=== PATIENT | female | born 1965 | race Caucasian/White ===

== ENCOUNTER 2017-09-13 11:48 | Day surgery (SDC) | payer OTHER ==
[2017-09-12 11:33] VITALS: BMI 36.3
[2017-09-13] MEDS ORDERED: Midazolam HCl 2 mg/2 ml Vial ONE ×2 (11:58→15:04)
[2017-09-13] MEDS ORDERED: Fentanyl 100 MCG/2 ML VIAL ONE (15:04)
--- NOTE | 2017-09-13 17:31 | MRI ---
MRI OF LUMBAR SPINE PERFORMED WITHOUT CONTRAST ENHANCEMENT 09/13/17 HISTORY: Chronic back pain. History of back surgery for scoliosis. There is a very severe scoliotic change to the spine which is convexed to the right. Pedicle screws a nd connecting rods degrade detail. The cord appears to have normal signal change. Some mild posterior clumping of the nerve roots would suggest some possible arachnoiditis type change. I do not appreciate any areas of central canal stenosis. No definitive signs for foraminal narrowing. There is paraspinal muscle atrophy which is particularly pronounced on the left. IMPRESSION: Severe scoliosis convexed to the right with postoperative changes of the spine. I do not appreciate a ny central canal stenosis. There is suggestion of some clumping to the nerve roots which could indica te an underlying mild arachnoiditis. Clinical correlation suggested. POS: [facility]
== END 2017-09-13 17:05 | disposition home or self-care (01) ==
LOC: SDC/OP 11:48
PROVIDERS: ATTEND Nurse Practitioner Family
DX: M47.816 Spondylosis without myelopathy or radiculopathy, lumbar region (principal); J30.9 Allergic rhinitis, unspecified; F41.9 Anxiety disorder, unspecified; D64.9 Anemia, unspecified; K21.9 Gastro-esophageal reflux disease without esophagitis; Z79.899 Other long term (current) drug therapy; Z88.5 Allergy status to narcotic agent; Z91.048 Other nonmedicinal substance allergy status
CPT/HCPCS: 72148; J2250; J3010

== ENCOUNTER 2018-12-28 09:33 | Outpatient (CLI) | payer OTHER ==
--- NOTE | 2019-01-02 14:32 | MMO ---
Bilateral MAMMO Bilat Screen [facility]. CLINICAL HISTORY: Patient is 53 years old and is seen for screening. The patient has the following family history of breast cancer: maternal aunt, at age 60, malignant (generic). The patient has no personal history of cancer. VIEWS: The views performed were: bilateral craniocaudal with tomosynthesis and bilateral mediolateral oblique with tomosynthesis. FILMS COMPARED: The present examination has been compared to a prior imaging study performed at [facility] on 06/21/2017. MAMMOGRAM FINDINGS: There are scattered fibroglandular densities. There is an asymmetry seen in the CC view only seen in the inner region of the right breast. In the left breast, there are no suspicious masses, calcifications or areas of architectural distortion. IMPRESSION: ASYMMETRY IN THE RIGHT BREAST REQUIRES ADDITIONAL EVALUATION. RECOMMEND DIAGNOSTIC MAMMOGRAM. ULTRASOUND MAY ALSO PROVE USEFUL AT RECALL. THE RESULTS OF THIS EXAM WERE SENT TO THE PATIENT. ACR BI-RADS Category 0 - Incomplete: Need additional imaging evaluation. [facility] will notify the patient of the need for additional imaging services. MAMMOGRAPHY NOTE: 1. A negative mammogram report should not delay a biopsy if a dominant of clinically suspicious mass is present. 2. Approximately 10% to 15% of breast cancers are not detected by mammography. 3. Adenosis and dense breasts may obscure an underlying neoplasm. Reported by: WILLEM JOVEL MD Electonically Signed: [id number]
== END 2018-12-28 09:34 | disposition home or self-care (01) ==
LOC: BICMAMMO 09:33
PROVIDERS: ATTEND Internal Medicine
DX: Z12.31 Encounter for screening mammogram for malignant neoplasm of breast (principal); N64.89 Other specified disorders of breast
CPT/HCPCS: 77063; 77067

== ENCOUNTER 2019-01-08 13:15 | Outpatient (CLI) | payer OTHER ==
--- NOTE | 2019-01-08 13:53 | MMO ---
Right Breast MAMMO Unilat Diag [facility]DI RT+NELDA. CLINICAL HISTORY: Patient is 53 years old and is seen for additional evaluation requested from prior study. The patient has the following family history of breast cancer: maternal aunt, at age 60, malignant (generic). The patient has no personal history of cancer. VIEWS: The views performed were: right craniocaudal spot compression with tomosynthesis and right mediolateral with tomosynthesis. FILMS COMPARED: The present examination has been compared to prior imaging studies performed at [facility] on 12/28/2018 and 01/08/2019, and at [facility] on 06/21/2017. MAMMOGRAM FINDINGS: There are scattered fibroglandular densities. There is a round mass with circumscribed margins seen in the lower-inner region of the right breast. The mass was shown to be a cyst on ultrasound. There are no suspicious masses, suspicious calcifications, or new areas of architectural distortion. IMPRESSION: THERE IS NO MAMMOGRAPHIC EVIDENCE OF MALIGNANCY. A ROUTINE FOLLOW-UP MAMMOGRAM IN 1 YEAR IS RECOMMENDED. THE RESULTS OF THIS EXAM WERE SENT TO THE PATIENT. ACR BI-RADS Category 2 - Benign finding MAMMOGRAPHY NOTE: 1. A negative mammogram report should not delay a biopsy if a dominant of clinically suspicious mass is present. 2. Approximately 10% to 15% of breast cancers are not detected by mammography. 3. Adenosis and dense breasts may obscure an underlying neoplasm. Reported by: MONTY YODER MD Electonically Signed: [id number]
--- NOTE | 2019-01-08 15:16 | ULT ---
RIGHT BREAST ULTRASOUND: HISTORY: Mass in the lower inner aspect of the right breast on mammography. COMPARISON: 01/08/2019 12/28/2018 TECHNIQUE: Multiplanar bowie-scale and color Doppler images were obtained in a targeted ultrasound of the right b reast. FINDINGS: At the 5 o'clock position of the right breast, there is a 5 mm hypoechoic structure, which may repres ent a cyst. This is approximately 4 cm from the nipple. There is a second structure in the 4 o'cloc k position of the breast with a hyperechoic center, measuring 5 mm in size. This likely represents a n intramammary lymph node. IMPRESSION: BI-RADS category 2-Benign findings. Annual screening mammography is recommended. POS: [facility]
== END 2019-01-08 13:16 | disposition home or self-care (01) ==
LOC: BICMAMMO 13:15
PROVIDERS: ATTEND Internal Medicine
DX: R92.2 Inconclusive mammogram (principal); Z80.3 Family history of malignant neoplasm of breast
CPT/HCPCS: G0279

== ENCOUNTER 2019-12-21 13:09 | Outpatient (CLI) | payer BC, MEDICARE ==
--- NOTE | 2019-12-21 14:24 | MRI ---
Exam: MRI cervical spine without contrast HISTORY: Cervical radicular pain. Neck pain times many years.. COMPARISON: None FINDINGS: Mild leftward curvature of the cervical spine. Appropriate T1 marrow signal intensity of the cervica l vertebra. Cervical spine vertebral body heights are maintained. No fracture. No significant STIR hyperintensity to suggest vertebral body edema or ligamentous injury Visualized brain parenchyma, cervicomedullary junction, cervical cord and the upper thoracic cord hav e normal size and signal intensity C2-C3: No significant posterior disc abnormality. No significant central canal stenosis or significan t neural foraminal narrowing C3-C4: Mild loss of disc space height. Broad-based disc bulge abuts the thecal sac. Mild central jesu l stenosis. Mild right neural foraminal narrowing due to uncovertebral hypertrophy. Patent left neural foramen C4-C5: Broad-based disc bulge abuts the thecal sac. There is no significant central canal stenosis. M ild right and moderate left neural foraminal narrowing due to uncovertebral hypertrophy C5-C6: Broad-based discussed by complex abuts the thecal sac. Subarachnoid space is effaced. There is deformity cervical cord. Mild to moderate central canal stenosis. Moderate bilateral neural foraminal narrowing C6-C7: Broad-based discussed by complex abuts the thecal sac. There is mild central canal stenosis. M oderate to severe right and mild left neural foraminal narrowing C7-T1: No severe posterior disc abnormality. No significant central canal stenosis or significant gregg ral foraminal narrowing IMPRESSION: Multilevel degenerative changes of the cervical spine as described above. Transcribed Date/Time: 12/21/2019 2:41 PM
--- NOTE | 2019-12-21 15:31 | RAD ---
RADIOGRAPH CERVICAL SPINE 7 VIEWS: DATE: 12/21/2019 HISTORY: 54-year-old female with cervical spondylosis and cervicalgia. TECHNIQUE: AP, open-mouth, and lateral. Flexion and extension. Bilateral obliques. FINDINGS: Loss of lordosis, with slight reversal of curvature. Marked focal kyphosis during flexion, with fulcrum at C4-5. Mild grade 1 anterolisthesis of C4 on C5 which does not change between flexion and extension versus n eutral. Very limited range of motion during extension; such that there is little or no change between the gregg tral lateral and extension views. At C5-6 and C6-7, there is moderate disc space narrowing with endplate osteophytes that encroach upon the anterior aspect of the spinal canal. These probable disc-osteophyte complexes are slightly more prominent at C6-7 and C5-6, and is exacerbated by retrolisthesis of C6 on C7. No instability the re. Severe Right neural foraminal stenosis at C5-6 and C6-7 due to prominent right uncinate process osteo phytes. Small uncinate process osteophytes cause lesser degrees of left neural foraminal stenosis at C4-5, C5 -6, and C6-7.. IMPRESSION: 1) severe right neural foraminal stenosis at C5-6 and C6-7 due to large right uncinate process osteop hytes. 2) cervical spondylosis with moderate degenerative disc disease at C5-6 and C6-7. 3) no instability. 4) Limited range of motion motion during extension. 5) sharp kyphosis during flexion.
== END 2019-12-21 13:10 | disposition home or self-care (01) ==
LOC: BICMRI 13:09
PROVIDERS: ATTEND Nurse Practitioner Family
DX: M47.22 Other spondylosis with radiculopathy, cervical region (principal); M50.122 Cervical disc disorder at C5-C6 level with radiculopathy; M48.02 Spinal stenosis, cervical region; M40.202 Unspecified kyphosis, cervical region
CPT/HCPCS: 72052; 72141

== ENCOUNTER 2020-07-04 08:07 | Outpatient (CLI) | payer BC, MEDICARE ==
--- NOTE | 2020-07-04 14:06 | CT ---
CT LUMBAR SPINE WITHOUT CONTRAST: 07/04/20 HISTORY: Back pain, scoliosis, multiple back surgeries. COMPARISON: None. CORRELATION: Lumbar spine MRI 09/14/19. FINDINGS: Redemonstration of a marked rightward curvature of the lumbar spine with the apex at the L1-L2 level. There are bilateral posterior transpedicular screws at T11, T12, L4, and solitary screw at L5. The T 11 and L4 screws are bridged with vertical rods. The T12 and L3 screws are bridged with a vertical ro d. With regards to the hardware, there is no evidence of fracture or perihardware lucency. There is a right sided screw associated with a disc prosthesis at the L1-L2 level. Vacuum disc phenomenon at L5-S1. Vacuum joint phenomenon in bilateral SI joints. Sacral ala are prese rved. Appropriate attenuation of retroperitoneal structures. No abnormal attenuation of the solid organs. L umbar spine vertebral body height is maintained. No evidence of fracture. Limited evaluation of the contents of the central spinal canal and neural foramina due to technique. With regards to the distal thoracic spine, no evidence of high grade central canal stenosis. Limited evaluation of the neural foramina. L1-L2: No high grade central canal stenosis. Moderate right foraminal narrowing. Patent left neural f oramen. L2-L3: No evidence of high grade central canal stenosis. Patent bilateral neural foramina. L3-L4: No high grade central canal stenosis. Patent bilateral neural foramina. L4-L5: No high grade central canal stenosis. Patent bilateral neural foramina. L5-S1: Vacuum disc phenomenon. Broad based disc osteophyte complex with moderate central canal stenos is. Moderate to severe right and moderate left neural foraminal narrowing. IMPRESSION: 1. Extensive fusion hardware of the lumbar spine as described above. 2. Stable dextroscoliosis of the lumbar spine. 3. Multilevel degenerative changes of the lumbar spine as described above. POS: [facility]
== END 2020-07-04 08:08 | disposition home or self-care (01) ==
LOC: BICCT 08:07
PROVIDERS: ATTEND Orthopaedic Surgery Orthopaedic Surgery of the Spine
DX: M40.30 Flatback syndrome, site unspecified (principal); M41.9 Scoliosis, unspecified; M47.816 Spondylosis without myelopathy or radiculopathy, lumbar region; Z98.1 Arthrodesis status
CPT/HCPCS: 72131

== ENCOUNTER 2021-05-18 11:31 | Outpatient (CLI) | payer BC, MEDICARE ==
[2021-05-18 15:54] LABS: SARS-CoV-2 NAA Rapid Test Not Detected (NotDetected)
== END 2021-05-18 11:32 | disposition home or self-care (01) ==
LOC: LABBT 11:31
PROVIDERS: ATTEND Urology
DX: Z01.818 Encounter for other preprocedural examination (principal); Z20.822 Contact with and (suspected) exposure to COVID-19
CPT/HCPCS: 93005; 93010; U0002

== ENCOUNTER 2021-05-19 07:31 | Day surgery (SDC) | payer BC, MEDICARE ==
[2021-05-18 10:46] VITALS: BMI 36.8
[2021-05-19] MEDS ORDERED: Iothalamate Meglumine 60% 50 ML VIAL FS ONE (08:07)
[2021-05-19] MEDS ORDERED: Levofloxacin 500 mg/D5W 100 ml Premix Bag ONE (08:49)
[2021-05-19] MEDS ORDERED: Fentanyl 100 MCG/2 ML VIAL ONE (09:13)
[2021-05-19] MEDS ORDERED: Midazolam HCl 2 mg/2 ml Vial ONE (09:13)
[2021-05-19] MEDS ORDERED: Dexamethasone 20 MG/5 ML VIAL ONE (09:23)
[2021-05-19] MEDS ORDERED: Lidocaine 1% PF 5 ML VIAL ONE (09:23)
[2021-05-19] MEDS ORDERED: PROPOFOL 200 MG/20 ML VIAL ONE (09:23)
[2021-05-19] MEDS ORDERED: Glycopyrrolate 0.2 MG/ML 5 ML SYRINGE ONE (09:23)
[2021-05-19] MEDS ORDERED: Ondansetron PF 4 MG/2 ML Vial ONE (09:23)
[2021-05-19] MEDS ORDERED: Oxybutynin 5 MG TAB ONE (11:27)
[2021-05-19] MEDS ORDERED: Phenazopyridine HCl 100 MG TAB ONE (11:27)
[2021-05-19] MEDS ORDERED: Ketorolac Tromethamine 30 MG/ML VIAL ONE (11:27)
== END 2021-05-19 11:57 | disposition home or self-care (01) ==
LOC: SDC 07:31
PROVIDERS: ATTEND Urology
PROC: 0T778DZ Dilation of Left Ureter with Intraluminal Device, Via Natural or Artificial Opening Endoscopic (ICD-10-PCS; principal; 2021-05-19)
PROC: 0TC48ZZ Extirpation of Matter from Left Kidney Pelvis, Via Natural or Artificial Opening Endoscopic (ICD-10-PCS; principal; 2021-05-19)
DX: N13.2 Hydronephrosis with renal and ureteral calculous obstruction (principal); K21.9 Gastro-esophageal reflux disease without esophagitis; J45.909 Unspecified asthma, uncomplicated; Z79.899 Other long term (current) drug therapy; Z88.5 Allergy status to narcotic agent; Z91.048 Other nonmedicinal substance allergy status
CPT/HCPCS: 74420; 82365; 88300; C2617; J1100; J1885; J1956; J2250; J2405; J2704; J3010; Q9961-U8

== ENCOUNTER 2021-06-17 11:02 | Outpatient (CLI) | payer BC, MEDICARE | END 2021-06-17 11:03 | disposition home or self-care (01) | LOC: BICULT 11:02 | PROVIDERS: ATTEND Urology | DX: N20.1 Calculus of ureter (principal) | CPT/HCPCS: 76770 ==

== ENCOUNTER 2023-02-02 08:25 | Day surgery (SDC) | payer MEDICARE ==
[2023-02-01 09:06] VITALS: BMI 39.6
[2023-02-02 10:57] LABS: Bacteria/HPF None Seen HPF (None Seen); Bilirubin Negative (Negative); Blood, Urine Negative (Negative); CAUTI Indications for Culture Urological Procedure; Clarity Clear (Clear); Glucose, Urine (Dipstick) Normal (Negative); Ketone, Urine Negative (Negative); Leukocyte Negative Leu/uL (Negative); Nitrite Negative (Negative); Protein, Urine (Dipstick) Negative (Neg-Trace); RBC/HPF 0-3 HPF (0-3); Specific Gravity, Urine 1.016 (1.002-1.036); Squamous Epithelial 0-3 HPF (0-3); Urobilinogen Normal mg/dL (Less than 2); WBC/HPF 0-3 HPF (0-3)
[2023-02-02 11:04] LABS: Urine Culture Reflex Yes Yes
[2023-02-02] MEDS ORDERED: LevoFLOXacin 500 mg/D5W 100 ML BAG ONE (11:43)
[2023-02-02] MEDS ORDERED: Iopamidol 15 ML ONE (11:48)
[2023-02-02] MEDS ORDERED: fentaNYL 50 mcg/mL 1 mL Vial ONE ×2 (12:00→13:40)
[2023-02-02] MEDS ORDERED: SUGAMMADEX SODIUM 200 MG/2 ML VIAL ONE (12:01)
[2023-02-02] MEDS ORDERED: PROPOFOL 200 MG/20 ML VIAL ONE (12:24)
[2023-02-02] MEDS ORDERED: Lidocaine 1% PF 5 ML VIAL ONE (12:24)
[2023-02-02] MEDS ORDERED: Rocuronium Bromide 10 MG/ML (10ML VIAL) ONE (12:24)
[2023-02-02] MEDS ORDERED: Succinylcholine 200 MG/10 ml SYRINGE FS ONE (12:24)
[2023-02-02] MEDS ORDERED: Oxybutynin 5 MG TAB ONE (13:38)
[2023-02-02] MEDS ORDERED: Phenazopyridine HCl 100 MG TAB ONE (13:39)
== END 2023-02-02 14:40 | disposition home or self-care (01) ==
LOC: SDC 08:25
PROVIDERS: ATTEND Urology
PROC: 0TF48ZZ Fragmentation in Left Kidney Pelvis, Via Natural or Artificial Opening Endoscopic (ICD-10-PCS; principal; 2023-02-02)
PROC: 0TF78ZZ Fragmentation in Left Ureter, Via Natural or Artificial Opening Endoscopic (ICD-10-PCS; 2023-02-02)
PROC: 0T778DZ Dilation of Left Ureter with Intraluminal Device, Via Natural or Artificial Opening Endoscopic (ICD-10-PCS; 2023-02-02)
DX: N20.2 Calculus of kidney with calculus of ureter (principal); J45.909 Unspecified asthma, uncomplicated; D64.9 Anemia, unspecified; K21.9 Gastro-esophageal reflux disease without esophagitis; F41.9 Anxiety disorder, unspecified; M47.812 Spondylosis without myelopathy or radiculopathy, cervical region; M47.26 Other spondylosis with radiculopathy, lumbar region; Z90.710 Acquired absence of both cervix and uterus; Z79.899 Other long term (current) drug therapy
CPT/HCPCS: 52356; 74018; 74420; 81001; 82365; 87086; C1747; C1769; C2617; J3010; 88300; J1956; J2704; Q9967

== ENCOUNTER 2025-04-16 10:02 | Outpatient (CLI) | payer BC, MEDICARE | END 2025-04-16 10:03 | disposition home or self-care (01) | LOC: BICMAMMO 10:02 | PROVIDERS: ATTEND Internal Medicine | DX: Z12.31 Encounter for screening mammogram for malignant neoplasm of breast (principal) | CPT/HCPCS: 77063; 77067 ==